=== PATIENT | female | born 1980 | race Caucasian/White ===

== ENCOUNTER 2017-02-07 12:12 | Emergency (ER) | payer MEDICAID ==
[~2017-02-07] VITALS: Ht 162.6 cm; Wt 95.0 kg
[~2017-02-07 12:12] MED LIST: DAPA1TAB3 PO; LIRA0.6P2 HOMEINJ; PIOG30TA4 PO; SERT100T5 PO
[2017-02-07 12:15] VITALS: BP 118/64
[2017-02-07] MEDS ORDERED: PIOG30TA23 PO (12:42)
[2017-02-07] MEDS ORDERED: FAMOTIDINE 20 MG/2 ML ONE (12:49)
[2017-02-07] MEDS ORDERED: methylPREDNISolone SOD SUCC 125 MG/2 ML ONE (12:49)
[2017-02-07] MEDS ORDERED: methylPREDNISolone SOD SUCC 125 MG/2 ML IVPush ONE (13:00)
[2017-02-07] MEDS ORDERED: FAMOTIDINE 20 MG/2 ML IVPush ONE (13:00)
== END 2017-02-07 14:17 | disposition home or self-care (01) ==
LOC: ED 13:19
DX: L50.0 Allergic urticaria (principal); E11.9 Type 2 diabetes mellitus without complications
CPT/HCPCS: 96374; 96375; 99284; J2930; S0028

== ENCOUNTER 2019-07-30 07:04 | Day surgery (SDC) | payer OTHER ==
[~2019-07-30] VITALS: Ht 160 cm; Wt 81.5 kg
[~2019-07-30 07:04] MED LIST changes: +ASCO500T8 PO; +BUPR-173 PO; +CHOL10003 PO; +EMPA1TAB7 PO; +IRON PO; +LISI5TAB7 PO; +PIOG30TA23 PO; -PIOG30TA4 PO; +PIOG30TA68 PO; +PIOG45TA20 PO; +SERT100T32 PO; -SERT100T5 PO; +TRULICITY SC
[2019-07-30] MEDS ORDERED: LACTATED RINGERS 1,000 ML IV SCH (07:35)
[2019-07-30 07:59] VITALS: BP 116/73
[2019-07-30] MEDS ORDERED: GABAPENTIN 300 MG CAPSULE PO ONE (08:00)
[2019-07-30] MEDS ORDERED: ACETAMINOPHEN 500 MG TABLET PO ONE (08:00)
[2019-07-30] MEDS ORDERED: SCOPOLAMINE 1MG PATCH TD SCH (08:00)
[2019-07-30] MEDS ORDERED: DIAZEPAM 5 MG TABLET PO ONE (08:00)
[2019-07-30] MEDS ORDERED: MIDAZOLAM 1 MG/ML, 2ML ONE (08:24)
[2019-07-30] MEDS ORDERED: FENTANYL PF 250 MCG/5ML ONE (08:25)
[2019-07-30] MEDS ORDERED: DEXAMETHASONE 4 MG/ML, 1ML ONE ×2 (08:26→15:09)
[2019-07-30] MEDS ORDERED: ROCURONIUM 10MG/ML,5ML ONE (08:26)
[2019-07-30] MEDS ORDERED: PROPOFOL 10 MG/ML, 20ML ONE (08:26)
[2019-07-30] MEDS ORDERED: SODIUM CHLORIDE 0.9% 50 ML ONE (08:28)
[2019-07-30] MEDS ORDERED: BUPIVACAINE/PF 0.5% ONE (08:28)
[2019-07-30] MEDS ORDERED: EPINEPHRINE 1 MG/ML, 1ML ONE ×2 (08:28→08:53)
[2019-07-30] MEDS ORDERED: DOXYCYCLINE 100 MG VIAL ONE (08:51)
[2019-07-30] MEDS ORDERED: LIDOCAINE-MPF 2% ,5ML ONE (08:53)
[2019-07-30] MEDS ORDERED: SODIUM BICARBONATE 1 MEQ/ML, 50ML VIAL ONE (08:53)
[2019-07-30] MEDS ORDERED: PROMETHAZINE 25 MG/ML, 1ML IV PRN (09:30)
[2019-07-30] MEDS ORDERED: ALBUTEROL SULFATE 2.5 MG/3 ML NPPB PRN (09:30)
[2019-07-30] MEDS ORDERED: HALOPERIDOL 5 MG/ML IV PRN (09:30)
[2019-07-30] MEDS ORDERED: MEPERIDINE/PF 25MG/ML,1ML IVPush PRN (09:30)
[2019-07-30] MEDS ORDERED: ONDANSETRON ODT 8 MG PO PRN (09:30)
[2019-07-30] MEDS ORDERED: LABETALOL 5MG/ML, 20ML IV PRN (09:30)
[2019-07-30] MEDS ORDERED: DIAZEPAM 5 MG/ML, 2ML IVPush PRN (09:30)
[2019-07-30] MEDS ORDERED: MIDAZOLAM 1 MG/ML, 2ML IV PRN (09:30)
[2019-07-30] MEDS ORDERED: HYDROmorphone 2 MG/ML, 1ML IVPush PRN (09:30)
[2019-07-30] MEDS ORDERED: hydrALAzine 20 MG/ML, 1ML IV PRN (09:30)
[2019-07-30] MEDS ORDERED: PROMETHAZINE 12.5 MG SUPP PR PRN (09:30)
[2019-07-30] MEDS ORDERED: FENTANYL PF 100 MCG/2ML IV PRN (09:30)
[2019-07-30] MEDS ORDERED: EPHEDRINE 50 MG/ML, 1ML IVPush PRN (09:30)
[2019-07-30] MEDS ORDERED: ONDANSETRON 2MG/ML, 2ML IV PRN (09:30)
[2019-07-30] MEDS ORDERED: FENTANYL PF 100 MCG/2ML ONE ×2 (09:40→10:02)
[2019-07-30] MEDS ORDERED: KETOROLAC 30 MG/1 ML ONE (10:29)
[2019-07-30] MEDS ORDERED: OXYcodone 5 MG/5 ML ORAL.SOL UDC ONE (12:14)
[2019-07-30] MEDS: OXYcodone 5 MG/5 ML ORAL.SOL UDC PO PRN ×2 (12:15→15:19)
[2019-07-30] MEDS ORDERED: SUGAMMADEX 200 MG/2 ML IVPush ONE (15:09)
[2019-07-30] MEDS ORDERED: ONDANSETRON 2MG/ML, 2ML ONE (15:09)
== END 2019-07-30 17:55 | disposition home or self-care (01) ==
LOC: OUT 07:04 → EDSTATUS 09:00 → OUT 17:55
PROVIDERS: ATTEND Plastic Surgery
DX: L30.4 Erythema intertrigo (principal); F45.22 Body dysmorphic disorder; E11.9 Type 2 diabetes mellitus without complications; I10 Essential (primary) hypertension; E78.5 Hyperlipidemia, unspecified; Z88.2 Allergy status to sulfonamides; Z91.040 Latex allergy status; Z88.8 Allergy status to other drugs, medicaments and biological substances; Z91.013 Allergy to seafood; Z91.018 Allergy to other foods; Z79.899 Other long term (current) drug therapy; Z87.891 Personal history of nicotine dependence
CPT/HCPCS: 15830; 15847; 82962; C1729; J0171; J1100; J1885; J2250; J2405; J2704; J3010; J7120